=== PATIENT | female | born 1970 | race Caucasian/White ===

== ENCOUNTER 2020-05-04 06:57 | Emergency (ER) | payer MEDICAID, OTHER ==
[~2020-05-04] VITALS: Ht 162.6 cm; Wt 54.0 kg
[2020-05-04] MEDS ORDERED: ACETAMINOPHEN WITH CODEINE 300/30MG TABLET PO ONE (09:15)
[2020-05-04 11:30] VITALS: BP 108/68
== END 2020-05-04 11:30 | disposition home or self-care (01) ==
LOC: ER 06:57
DX: U07.1 COVID-19 (principal); S60.022A Contusion of left index finger without damage to nail, initial encounter; L03.012 Cellulitis of left finger; Z88.8 Allergy status to other drugs, medicaments and biological substances; X58.XXXA Exposure to other specified factors, initial encounter; Y93.89 Activity, other specified; Y92.89 Other specified places as the place of occurrence of the external cause; Y99.8 Other external cause status
CPT/HCPCS: 29130; 71045; 73120; 99285; C9803; U0003

== ENCOUNTER 2020-06-10 03:57 | Emergency (ER) | payer MEDICAID ==
[~2020-06-10] VITALS: Ht 162.6 cm; Wt 57.0 kg
[2020-06-10 04:16] VITALS: BP 143/87
[2020-06-10] MEDS ORDERED: ACETAMINOPHEN WITH CODEINE 300/30MG TABLET PO ONE (04:30)
== END 2020-06-10 05:21 | disposition home or self-care (01) ==
LOC: ER 03:57
DX: S29.9XXA Unspecified injury of thorax, initial encounter (principal); E05.90 Thyrotoxicosis, unspecified without thyrotoxic crisis or storm; Z88.8 Allergy status to other drugs, medicaments and biological substances; Z88.6 Allergy status to analgesic agent; Y08.89XA Assault by other specified means, initial encounter; Y93.89 Activity, other specified; Y92.89 Other specified places as the place of occurrence of the external cause; Y99.8 Other external cause status
CPT/HCPCS: 93005; 99283

== ENCOUNTER 2020-08-11 14:35 | Emergency (ER) | payer MEDICAID ==
[~2020-08-11] VITALS: Ht 170.2 cm; Wt 54.0 kg
[2020-08-11 14:50] VITALS: BP 124/72
== END 2020-08-11 16:08 | disposition home or self-care (01) ==
LOC: ER 14:35
DX: Z76.0 Encounter for issue of repeat prescription (principal); E05.90 Thyrotoxicosis, unspecified without thyrotoxic crisis or storm; Z98.1 Arthrodesis status; Z98.890 Other specified postprocedural states; Z88.8 Allergy status to other drugs, medicaments and biological substances
CPT/HCPCS: 99282

== ENCOUNTER 2020-10-13 14:05 | Emergency (ER) | payer MEDICAID ==
[~2020-10-13] VITALS: Ht 170.2 cm; Wt 52.0 kg
[2020-10-13 14:17] VITALS: BP 105/57
== END 2020-10-13 15:31 | disposition home or self-care (01) ==
LOC: ER 14:05
DX: Z76.0 Encounter for issue of repeat prescription (principal); F41.9 Anxiety disorder, unspecified; E05.90 Thyrotoxicosis, unspecified without thyrotoxic crisis or storm; Z88.8 Allergy status to other drugs, medicaments and biological substances
CPT/HCPCS: 99282

== ENCOUNTER 2020-11-13 14:09 | Emergency (ER) | payer MEDICAID ==
[~2020-11-13] VITALS: Ht 170.2 cm; Wt 54.0 kg
[2020-11-13 14:12] VITALS: BP 94/69
[2020-11-13] MEDS ORDERED: DIAZ5TAB PO (14:38)
[2020-11-13] MEDS ORDERED: METR-167 PO (14:38)
[2020-11-13] MEDS ORDERED: LEVO125T PO (14:38)
== END 2020-11-13 15:03 | disposition home or self-care (01) ==
LOC: ER 14:13
DX: Z76.0 Encounter for issue of repeat prescription (principal); F41.9 Anxiety disorder, unspecified; M19.90 Unspecified osteoarthritis, unspecified site; E03.9 Hypothyroidism, unspecified; Z88.8 Allergy status to other drugs, medicaments and biological substances; Z90.89 Acquired absence of other organs
CPT/HCPCS: 99283

== ENCOUNTER 2021-01-20 09:25 | Emergency (ER) | payer MEDICAID ==
[~2021-01-20] VITALS: Ht 170.2 cm; Wt 53.0 kg
[~2021-01-20 09:25] MED LIST: DIAZ5TAB PO; LEVO125T PO; METR-167 PO
[2021-01-20] MEDS ORDERED: ACET-2708 MT (09:55)
[2021-01-20] MEDS ORDERED: LEVO25TA2 MT (09:55)
[2021-01-20] MEDS ORDERED: METR500T MT (09:55)
[2021-01-20] MEDS ORDERED: ACETAMINOPHEN WITH CODEINE 300/30MG TABLET PO ONE (10:00)
[2021-01-20 10:10] VITALS: BP 108/68
== END 2021-01-20 10:11 | disposition home or self-care (01) ==
LOC: ER 09:25
DX: M25.512 Pain in left shoulder (principal); I95.9 Hypotension, unspecified; Z76.0 Encounter for issue of repeat prescription; Z88.8 Allergy status to other drugs, medicaments and biological substances; Z88.9 Allergy status to unspecified drugs, medicaments and biological substances; Z88.6 Allergy status to analgesic agent; Z79.899 Other long term (current) drug therapy
CPT/HCPCS: 99283

== ENCOUNTER 2022-01-14 14:11 | Emergency (ER) | payer MEDICAID, OTHER ==
[~2022-01-14] VITALS: Ht 165.1 cm; Wt 66.0 kg
[~2022-01-14 14:11] MED LIST changes: +ACET-2708 MT; +LEVO25TA2 MT; +METR500T MT
[2022-01-14 14:45] VITALS: BP 88/60
[2022-01-14] MEDS ORDERED: T3 PO (16:51)
[2022-01-14] MEDS ORDERED: METR500T MT (16:51)
== END 2022-01-14 17:36 | disposition home or self-care (01) ==
LOC: ER 16:44
DX: N76.0 Acute vaginitis (principal); Z76.0 Encounter for issue of repeat prescription; F41.9 Anxiety disorder, unspecified; M19.90 Unspecified osteoarthritis, unspecified site; E03.9 Hypothyroidism, unspecified; I95.9 Hypotension, unspecified; Z88.6 Allergy status to analgesic agent; Z88.8 Allergy status to other drugs, medicaments and biological substances; Z98.890 Other specified postprocedural states
CPT/HCPCS: 99282

== ENCOUNTER 2022-03-05 08:45 | Emergency (ER) | payer OTHER ==
[~2022-03-05] VITALS: Ht 170.2 cm; Wt 52.0 kg
[~2022-03-05 08:45] MED LIST changes: +T3 PO
[2022-03-05 08:53] VITALS: BP 96/55
== END 2022-03-05 09:33 | disposition home or self-care (01) ==
LOC: ER 08:55
DX: Z76.0 Encounter for issue of repeat prescription (principal); Z88.9 Allergy status to unspecified drugs, medicaments and biological substances; Z88.6 Allergy status to analgesic agent; Z79.899 Other long term (current) drug therapy; Z86.39 Personal history of other endocrine, nutritional and metabolic disease
CPT/HCPCS: 99281; 99283

== ENCOUNTER 2022-05-08 17:56 | Emergency (ER) | payer OTHER ==
[~2022-05-08] VITALS: Ht 165.1 cm; Wt 45.0 kg
[2022-05-08 18:06] VITALS: BP 98/70
[2022-05-08] MEDS ORDERED: DIAZEPAM 5 MG TABLET PO NR (18:15)
== END 2022-05-08 18:57 | disposition home or self-care (01) ==
LOC: ER 17:56
DX: F43.0 Acute stress reaction (principal); F41.9 Anxiety disorder, unspecified; F19.10 Other psychoactive substance abuse, uncomplicated; E03.9 Hypothyroidism, unspecified; I95.9 Hypotension, unspecified; M19.90 Unspecified osteoarthritis, unspecified site; Z86.14 Personal history of Methicillin resistant Staphylococcus aureus infection
CPT/HCPCS: 93005; 99283

== ENCOUNTER 2023-11-12 12:19 | Emergency (ER) | payer MEDICAID, OTHER ==
[~2023-11-12] VITALS: Ht 170.2 cm; Wt 55.0 kg
[2023-11-12 12:32] VITALS: TEMP 98.7; O2SAT 100
[2023-11-12] MEDS ORDERED: ACETAMINOPHEN 325MG TABLET PO ONE (13:00)
[2023-11-12] MEDS ORDERED: METR375C2 MT (13:07)
[2023-11-12 13:48] VITALS: BP 121/68; PULSE 88; RESP 18
== END 2023-11-12 13:56 | disposition home or self-care (01) ==
LOC: ER 13:40
DX: M54.50 Low back pain, unspecified (principal); Z76.0 Encounter for issue of repeat prescription; F41.9 Anxiety disorder, unspecified; I95.9 Hypotension, unspecified; E03.9 Hypothyroidism, unspecified; Z79.899 Other long term (current) drug therapy
CPT/HCPCS: 99283